=== PATIENT | male | born 1960 | race Caucasian/White ===

== ENCOUNTER 2020-06-16 08:17 | Outpatient (NON) | payer OTHER, SELFPAY ==
[2020-06-16 18:16] LABS: SARS-CoV-2 RNA PCR Negative
== END 2020-06-16 08:18 ==
PROVIDERS: PCP Family Medicine; Visit Provider Family Medicine
DX: Z20.828 Contact with and (suspected) exposure to other viral communicable diseases (principal); R68.89 Other general symptoms and signs
CPT/HCPCS: 87635; C9803; U0003

== ENCOUNTER → 2020-06-25 08:23 | Outpatient (CLI) | payer OTHER, SELFPAY ==
--- NOTE | ~2020-06-25 | XR_ITS ---
EXAMINATION: XR chest 2V 06/25/2020 08:54 INDICATION: Chest mass, localized swelling. PROCEDURE: 2 view chest COMPARISON: 09/25/2013 FINDINGS: The lungs are clear. The cardiomediastinal silhouette is within normal limits. There are no pleural effusions. There is no pneumothorax suspected. Calcified granuloma right lung base. IMPRESSION: 1: NO ACUTE CARDIOPULMONARY DISEASE. Reviewed, dictated and finalized at location B.
== END ==
PROVIDERS: PCP Family Medicine; Visit Provider Family Medicine
DX: R22.2 Localized swelling, mass and lump, trunk (principal)
CPT/HCPCS: 71046

== ENCOUNTER 2020-11-07 08:46 | Outpatient (CLI) | payer OTHER, SELFPAY | END 2020-11-07 08:47 | disposition home or self-care (01) | LOC: ANHCOVIDVC 08:46 | PROVIDERS: PCP Family Medicine | DX: Z23 Encounter for immunization (principal) | CPT/HCPCS: 0001A; 91300 ==

== ENCOUNTER 2020-11-28 08:44 | Outpatient (CLI) | payer OTHER, SELFPAY | END 2020-11-28 08:45 | disposition home or self-care (01) | LOC: ANHCOVIDVC 08:44 | PROVIDERS: PCP Family Medicine | DX: Z23 Encounter for immunization (principal) | CPT/HCPCS: 0002A; 91300 ==

== ENCOUNTER → 2024-07-17 14:56 | Outpatient (REF) | payer OTHER, SELFPAY | LOC: ANHLAB 14:56 | PROVIDERS: PCP Family Medicine; Visit Provider Plastic Surgery | DX: D23.62 Other benign neoplasm of skin of left upper limb, including shoulder (principal); R22.9 Localized swelling, mass and lump, unspecified; L98.0 Pyogenic granuloma | CPT/HCPCS: 88304 ==

== ENCOUNTER 2024-09-14 00:51 | Day surgery (SDC) | payer OTHER, SELFPAY ==
[2024-09-14 08:56] VITALS: BP 137/77; PULSE 79; RESP 16; TEMP 37; O2SAT 100
[2024-09-14] MEDS: LACTATED RINGERS 1,000 ML 150 ML IV CONT (09:06)
--- NOTE | 2024-09-14 09:46 | P.PNAN_ITS ---
Anes - Initial Pre Proc Eval Procedure: Operation Date: 09/14/24 10:00 Proposed Procedures p Screening Colonoscopy - Rogelio Vigil MD Date/Time: 09/14/24 09:46 Surgeon: Rogelio Vigil MD Pre Op Diagnosis: screening for malignant neoplasm of colon Patient Data Age: 64 Gender: M Height: Weight: 91.4 kg Last Vital Signs Temp 98.6 F 09/14/24 08:56 Pulse 79 09/14/24 08:56 Resp 16 09/14/24 08:56 BP 137/77 09/14/24 08:56 Pulse Ox 100 09/14/24 08:56 O2 Del Method Room Air 09/14/24 08:56 Allergies Allergy/AdvReac Type Severity Reaction Status Date / Time [id number] Reductase AdvReac Intermediate myalgia Verified 09/14/24 08:54 Inhibitor Home Medications ?Medication ?Instructions ?Recorded ?Confirmed ?Type No Home Medications 06/26/24 08/24/24 History Patient hx anesthesia problems: none Family hx anesthesia problems: none Results Review: All pre-operative results and documents have been reviewed as part of the pre- operative evaluation. [facility] Past Medical History Medical History (Updated 08/06/24 @ 10:20 by Chet Reeder MD) Encounter for screening colonoscopy Encounter for wellness examination Screening for thyroid disorder Mass of finger Varicose veins of legs BMI 32.0-32.9,adult Prostate cancer screening encounter, options and risks discussed GERD without esophagitis Mixed hyperlipidemia Lump in chest Family History Family History Sibling Hypertension Mother Family history of coronary artery disease Family history of malignant neoplasm Family history of condition Social History Social History Smoking status: Never smoker (smoked 3 days) Alcohol intake: current Do You Feel Safe in your Home?: Yes Lack of Transportation: No Lack of Food: Never True Current Housing: I Have Housing Concerned About Future Housing: No Difficulty Paying Gas/Electric Bills: No Difficulty Paying for Meds: No Currently Unemployed: No Difficulty w/ Childcare or Family Care: No Anes - Eval Final PreProcedure Day of Procedure 09/14/24 09:46 Patient weight: normal Heart: regular rate and rhythm Lungs: clear to auscultation Airway: Mallampati scale class II Neurological: alert and oriented Last oral intake: >/= 8 hours ASA classification: II Emergent: no Anesthetic plan: proceed Anesthesia type and monitoring: general GIVS and standard monitoring Results Review: All pre-operative results and documents have been reviewed as part of the pre- operative evaluation. Informed Consent: The patient's anesthetic plan and its attendant risks and benefits were discussed with the patient/family/POA. Questions were solicited and answers provided to the satisfaction of the patient/family/POA.
--- NOTE | 2024-09-14 10:00 | PM.IMHP ---
H&P: HPI History of Present Illness Date/Time: 09/14/24 10:00 Chief Complaint: Screening colonoscopy Narrative: This is the patient's 2nd colonoscopy. There are no GI symptoms and there is no family history of colorectal cancer. Review of Systems Review of Systems: All systems reviewed & are unremarkable except as noted in HPI and below [facility] Past Medical History Medical History (Updated 08/06/24 @ 10:20 by Chet Reeder MD) Encounter for screening colonoscopy Encounter for wellness examination Screening for thyroid disorder Mass of finger Varicose veins of legs BMI 32.0-32.9,adult Prostate cancer screening encounter, options and risks discussed GERD without esophagitis Mixed hyperlipidemia Lump in chest Family History Family History Sibling Hypertension Mother Family history of coronary artery disease Family history of malignant neoplasm Family history of condition Social History Social History Smoking status: Never smoker (smoked 3 days) Alcohol intake: current Do You Feel Safe in your Home?: Yes Lack of Transportation: No Lack of Food: Never True Current Housing: I Have Housing Concerned About Future Housing: No Difficulty Paying Gas/Electric Bills: No Difficulty Paying for Meds: No Currently Unemployed: No Difficulty w/ Childcare or Family Care: No Meds Home Medications and Allergies Home Medications ?Medication ?Instructions ?Recorded ?Confirmed ?Type No Home Medications 06/26/24 08/24/24 History Allergies Allergy/AdvReac Type Severity Reaction Status Date / Time [id number] Reductase AdvReac Intermediate myalgia Verified 09/14/24 08:54 Inhibitor Vital Signs Vital Signs - 24 hr 09/14/24 08:56 Temperature 98.6 F Pulse Rate 79 Respiratory Rate 16 Blood Pressure 137/77 Pulse Oximetry 100 Oxygen Delivery Room Air Exam Const: General: cooperative and healthy appearing Resp: Effort & Inspection: normal respiratory effort and able to speak in complete sentences Auscultation: clear to auscultation bilaterally Cardio: Rate: regular rate Rhythm: regular rhythm GI: Inspection: normal to inspection GI Palp: No No hepatosplenomegaly present Auscultation: normal bowel sounds Rectal Exam: deferred Skin: General skin exam: normal color Psych: Appearance: grossly normal Mental Status: mental status grossly normal Assessment and Plan Assessment and plan (1) Encounter for screening colonoscopy: Code(s): Z12.11 - Encounter for screening for malignant neoplasm of colon Status: Acute Plan The patient is deemed a good candidate for the procedure. Consent signed. Will proceed.
[2024-09-14 10:24] VITALS: BP 106/63; PULSE 68; RESP 15; O2SAT 97
[2024-09-14 10:34] VITALS: BP 107/66; PULSE 68; RESP 20; O2SAT 97
[2024-09-14 10:48] VITALS: BP 121/81; PULSE 63; RESP 19; O2SAT 98
== END 2024-09-14 11:05 | disposition home or self-care (01) ==
PROVIDERS: PCP Family Medicine; Referring Provider Nurse Practitioner Adult Health; Visit Provider Internal Medicine Gastroenterology
PROC: 0DJD8ZZ Inspection of Lower Intestinal Tract, Via Natural or Artificial Opening Endoscopic (ICD-10-PCS; CPT 45378; principal; 2024-09-14 10:00)
DX: Z12.11 Encounter for screening for malignant neoplasm of colon (principal); E78.2 Mixed hyperlipidemia; K21.9 Gastro-esophageal reflux disease without esophagitis; I83.93 Asymptomatic varicose veins of bilateral lower extremities; Z80.9 Family history of malignant neoplasm, unspecified; Z82.49 Family history of ischemic heart disease and other diseases of the circulatory system
CPT/HCPCS: 45378; J2003; J2704; J7120